=== PATIENT | female | born 1980 | race Caucasian/White ===

== ENCOUNTER 2017-02-27 06:40 | Day surgery (SDC) | payer BC, OTHER ==
[2017-02-23 12:37] VITALS: BMI 25.0
[2017-02-27] MEDS ORDERED: PROPOFOL 20 ML ONE (08:34)
[2017-02-27] MEDS ORDERED: LIDOCAINE HCL/PF 2% SDV 5ML VIAL ONE (08:34)
[2017-02-27] MEDS ORDERED: MIDAZOLAM HCL 2 MG/2 ML SINGLE DOSE VIAL ONE (08:34)
[2017-02-27] MEDS ORDERED: BUPIVACAINE HCL/EPINEPHRINE/PF 30 ML VIAL IJ ONE (09:02)
[2017-02-27] MEDS ORDERED: BUPIVACAINE 0.25% /EPI 1:200,000 10 ML VIAL INF ONE (10:21)
--- NOTE | 2017-02-27 10:40 | OP ---
Operative Note - Note: Operative Date: 02/27/17 Pre-Operative Diagnosis: right knee lateral meniscus tear Operation: RKA, lateral meniscus repair Post-Operative Diagnosis: Same as Pre-op Surgeon: Rl Cutris Anesthesia: General Operative Report Dictated: Yes
--- NOTE | 2017-02-27 10:41 | DS ---
Physical Examination Vital Signs: Vital Signs Temperature 98 F 02/27/17 07:59 Pulse Rate 52 L 02/27/17 07:59 Respiratory Rate 18 02/27/17 07:59 Blood Pressure 100/57 02/27/17 07:59 O2 Sat by Pulse Oximetry (%) 100 02/27/17 07:59 Discharge Summary Reason For Visit: LATERAL MENISCAL TEAR, RIGHT KNEE Condition: Good - Instructions Diet, Activity, Other Instructions: Post Operative Instructions: Knee Arthroscopy Dr Rl Curtis 1. Pain following an arthroscopy is variable. Some patients will have more pain than others. You have been provided with a prescription for medication that contains a narcotic. You are not allowed to drive while on this medication. You should NOT take Tylenol (Acetaminophen) when taking the pain medication ( it will result in an overdose). Feel free to take medications such as Ibuprofen or Naprosyn in addition to the pain medicine if you do not have any problems with the NSAID class of medications. 2. You are allowed to remove the bandages and shower in 24 hours unless directed otherwise. You are not allowed to bathe or go swimming until the sutures are removed. Put band-aids on the sutures after your shower and do not put any creams or lotions over the incisions. 3. You are allowed to put all your weight on the leg and bend your knee, unless directed otherwise. 4. Apply ice to the knee for 15 min every hour or so. You may continue this for as many days as you like. 5. Please call the office to schedule a visit to have your sutures removed. 6. If for any reason you believe you may have an infection or are concerned, please feel free to call me. I can be reached through our office number 24 hours a day. 7. Please call our office with any questions; we will review the surgical findings during your post operative visit. Disposition: HOME - Home Medications Comprehensive Discharge Medication List: Ambulatory Orders NK [No Known Home Medication] 02/23/17
[2017-02-27 11:30] VITALS: TEMP 97.7
[2017-02-27] MEDS ORDERED: LACTATED RINGERS SOLUTION 1,000 ML IV SCH (12:00)
[2017-02-27 12:26] VITALS: BP 100/65; PULSE 61
[2017-02-27] MEDS ORDERED: ONDANSETRON 4 MG/2 ML VIAL IVPUSH PRN (13:26)
[2017-02-27] MEDS ORDERED: oxyCODONE HCL 5 MG TABLET PO PRN ×2 (13:26)
== END 2017-02-27 12:25 | disposition home or self-care (01) ==
LOC: FASU 06:40
PROVIDERS: ATTEND Orthopaedic Surgery
PROC: 0SBC4ZZ Excision of Right Knee Joint, Percutaneous Endoscopic Approach (ICD-10-PCS; principal; 2017-02-27 10:02)
DX: S83.281A Other tear of lateral meniscus, current injury, right knee, initial encounter (principal); X58.XXXA Exposure to other specified factors, initial encounter; Y93.9 Activity, unspecified; Y92.9 Unspecified place or not applicable; M25.461 Effusion, right knee; M65.9 Synovitis and tenosynovitis, unspecified
CPT/HCPCS: 84703; 94760